=== PATIENT | female | born 1985 | race Caucasian/White ===

== ENCOUNTER 2024-11-08 18:55 | Emergency (ER) | payer MEDICAID ==
[~2024-11-08] VITALS: Ht 162.6 cm; Wt 126.0 kg
[~2024-11-08 18:55] MED LIST: ACYC-129 PO; BUSP5TAB3 PO; NORG1TAB90 PO
[2024-11-08 19:21] VITALS: TEMP 97.8
[2024-11-08] MEDS: ketorolac trometh 15mg/ml vial 15 MG/ML ML IM ONE (19:31)
--- NOTE | 2024-11-08 19:43 | Physician Documentation ---
History of Present Illness Chief Complaint: Abdominal Pain Stated Complaint: ABD AND BACK PAIN HPI 38-year-old female presents to the emergency department for evaluation of abdomi nal pain associated with right-sided flank pain. Patient reports that the right-sided flank pain is severe positive CVA tenderness when assessed. Patient denies any dysuria urine retention or frequency at this time. Patient reports that she may have had a fever but she did not take her temperature so she is unsure. No nausea vomiting diarrhea currently Medication Reconciliation Allergies: Coded Allergies: morphine (Verified Adverse Reaction, Intermediate, itching, 11/08/24) Scheduled Acyclovir* (Zovirax*), 0.5 TABLET PO BID, (Reported) Buspirone Hcl* (Buspar*), 1.5 TABLET PO BID, (Reported) Norgestimate-Ethinyl Estradiol (Ortho Tri-Cyclen), 1 TABLET PO DAILY, (Reported) Scheduled PRN Hydrocodone Bit/Acetaminophen (Hydrocodone-Apap 10-325 Tablet), 1 TAB PO TID PRN PRN for pain Physical Exam Vital Signs: Temperature: 97.8, Source: Temporal, Heart Rate: 108, Respiratory Rate: 16, BP: 182/102, Pulse Oximetry: 98, Weight: 126.000 Oxygen Flow Rate: 0 Physical Exam VITALS: Reviewed and as above. GENERAL: Alert, no apparent distress. HEENT: Normocephalic, atraumatic, PERRL, EOMI, dry mucosa, no erythema RESPIRATORY: Lungs clear, normal breath sounds, no respiratory distress. CHEST: No accessory muscle use, no retractions CV: Regular rate, rhythm, no edema, no murmur, No: JVD GI: Soft, non-tender, bowels sounds present, no rebound, guarding, or rigidity BACK: Positive CVA tenderness, or swelling MUSCULOSKELETAL No deformities, no edema SKIN: Warm and dry, no rash NEURO: Oriented x4, No motor or sensory deficit PSYCH: Normal mood and affect, no agitation Progress Results/Orders Results/Orders Medications Received in ER Medications (Trade) Dose Ordered Sig/[place] Route PRN Reason Start Time Stop Time Status Last Admin Dose Admin (Toradol injection) 15 mg ONCE ONCE IM 11/08/24 19:30 11/08/24 19:31 DC 11/08/24 19:31 15 MG Vital Signs 11/08/24 11/08/24 19:21 19:31 Temp 97.8 Pulse 108 Resp 16 16 B/P (MAP) 182/102 Pulse Ox 98 O2 Flow Rate 0 Medical Decision Making Findings CARE THE PATIENT WAS TRANSFERRED TO ID FROM OUR NURSE PRACTITIONER KAREN. Abdomen and pelvis CT scan without IV contrast, indication: Flank pain Impression: Descending and sigmoid diverticulosis. Fatty liver infiltration. 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 Cannot exclude bilateral ovarian cysts. Laboratory data interpretation: CBC, CMP and urinalysis are unremarkable. Emergency department course and medical decision-making: Patient presents with right flank pain. There was no evidence of a urinary tract infection, hematuria. There is no evidence on the CT scan for infection. No evidence of kidney stones or gallstones. No infection has been identified. Patient has an unremarkable abdominal exam. Patient's pain is actually worse with movement. I suspect this is musculoskeletal pain. Patient will be given a prescription for [place]. No medical or surgical emergency has been identified. Test results and all of the above reviewed and discussed with the patient. Patient is stable for discharge. Departure Time of Disposition: : Disposition: 01 HOME / SELF CARE / HOMELESS Impression: Primary Impression: Musculoskeletal back pain Condition: Stable Discharge Instructions: Musculoskeletal Pain Additional Instructions: I SUSPECT YOUR PAIN IS MUSCULOSKELETAL. TAKE MOTRIN/ADVIL 600 MG EVERY 8 HOURS WITH FOOD FOR PAIN. TAKE NORCO FOR SEVERE PAIN. NO DRIVING WHEN TAKING THE NORCO. FOLLOW UP WITH YOUR PRIMARY CARE DOCTOR IF YOUR SYMPTOMS DO NOT IMPROVE. Prescriptions Hydrocodone Bit/Acetaminophen (Hydrocodone-Apap 10-325 Tablet) 10mg/325mg Tablet 1 TAB PO TID PRN PRN for pain, #20 TAB Prov: TONIA EISENBERG MD 11/09/24 Education Educated: Patient Educated regarding: diagnosis, treatment, need for follow up Signature Scribe Signature: No Scribe Attestation: No scribe JACKLYN BETANCOURT Nov 08, 2024 19:43 TONIA EISENBERG MD Nov 09, 2024 01:29
[2024-11-08 20:02] LABS: MEAN PLATELET VOLUME 8.6 FL (7.4-10.4); RED CELL DISTRIBUTION WIDTH 15.2 % (11.5-14.5)
[2024-11-08] MEDS: normal saline 1000ml 1,000 ML IV ONE (20:04)
[2024-11-08 20:11] LABS: CREATININE 0.89 MG/DL (0.40-0.90); TOTAL CARBON DIOXIDE 27.7 MMOL/L (24-32); eCRCL 73 ML/MIN; eGFR 70 ML/MIN
[2024-11-08] MEDS: HYDROcodone/acetaminophen 5mg/325mg tablet PO ONE (20:34)
[2024-11-08] MEDS ORDERED: iohexol 300mg/ml 100ml inj. ONE (20:38)
[2024-11-08 21:24] LABS: LEUKOCYTE ESTERASE ,URINE NEGATIVE (Neg); NITRITES, URINE NEGATIVE (Neg); OCCULT BLOOD,URINE SMALL (Neg); URINE HCG NEGATIVE (NEG)
[2024-11-08 21:32] LABS: UA COLLECTION TYPE CLN CATCH MIDSTREAM
[2024-11-08 21:35] LABS: SQUAMOUS EPITHELIAL CELL,UR FEW /LPF (FEW)
--- NOTE | 2024-11-09 00:34 | RADIOLOGY REPORT ---
Clinical History LBP Comparison None Technique: All CT scans at this medical facility are performed using dose modulation techniques as appropriate t o a performed exam including the following: Automated exposure control was utilized; adjustment of th e mA and/or kV according to patient size; and use of iterative reconstruction technique. All CT studies are reported to the Dose Index Registry of the [employer]. Contrast: omni 300 100ml Radiation Dose: CTDI (mGy): 36.49; DLP (mGy-cm): 2006.25 ELISABETSTEFFANIEKEYONNAElder JOHN, [id number] FINDINGS: LUNG BASES: Unremarkable LIVER: Hypodense liver parenchyma. Liver is 20.6 cm in length. GALLBLADDER: Contracted gallbladder PANCREAS: Unremarkable SPLEEN: Unremarkable ADRENAL GLANDS: Unremarkable KIDNEYS: Unremarkable AORTA: Unremarkable INFERIOR VENA CAVA: Unremarkable LYMPH NODES: Unremarkable STOMACH: Unremarkable SMALL INTESTINE: Unremarkable APPENDIX: Normal caliber. COLON: Interposition of colon anterior to the liver. There is diverticulosis of descending and sigmo id colon. BLADDER: Unremarkable RECTUM: Unremarkable SKELETAL: Unremarkable SUPERFICIAL SOFT TISSUES: Unremarkable OTHER: Bilateral pelvic hypodense lesions which may represent ovarian cysts. IMPRESSION: Descending and sigmoid diverticulosis. Fatty liver infiltration. 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 Cannot exclude bilateral ovarian cysts. This report was electronically signed by João Salazar MD on 11/09/2024 12:32:07 AM.
[2024-11-09] MEDS ORDERED: HYDR-3973 PO (01:28)
[2024-11-09 01:38] VITALS: BP 146/67; PULSE 76; RESP 16; O2SAT 98
== END 2024-11-09 01:41 | disposition home or self-care (01) ==
LOC: ER 18:55
DX: M54.9 Dorsalgia, unspecified (principal); Z88.5 Allergy status to narcotic agent; Z79.899 Other long term (current) drug therapy
CPT/HCPCS: 36415; 74176; 80053; 81001; 81025; 83690; 84702; 85025; 96360; 96361; 96372; 99285; J1885; J7030; Q9967

== ENCOUNTER 2025-04-20 13:36 | Emergency (ER) | payer MEDICAID, OTHER ==
[~2025-04-20] VITALS: Ht 162.6 cm; Wt 115.7 kg
[2025-04-20 13:49] VITALS: BP 165/81; PULSE 98; RESP 18; TEMP 98.5; O2SAT 96
--- NOTE | 2025-04-20 13:58 | Physician Documentation ---
History of Present Illness ~ Chief Complaint: Cold, cough & congestion Stated Complaint: ASTHMA Time Seen by MD: 13:52 Source: patient Mode of Arrival: POV Exam Limitations: no limitations HPI 39-year-old female with history of asthma with upper respiratory infection use telehealth was able to crop picker her prescription for prednisone but was unable to get her inhaler. Cold cough congestion x1 week Medication Reconciliation Allergies: Coded Allergies: morphine (Verified Adverse Reaction, Intermediate, itching, 04/20/25) Scheduled Acyclovir* (Zovirax*), 0.5 TABLET PO BID, (Reported) Buspirone Hcl* (Buspar*), 1.5 TABLET PO BID, (Reported) Norgestimate-Ethinyl Estradiol (Ortho Tri-Cyclen), 1 TABLET PO DAILY, (Reported) Past Medical History Past Medical History: Asthma Past Surgical History: noncontributory Lives with: Family Lives In: Home Occupation: employed Review of Systems Respiratory: Reports: see HPI Physical Exam Vital Signs: RN Vital Signs have been reviewed: Yes, Temperature: 98.5, Source: Temporal, Heart Rate: 98, Respiratory Rate: 18, BP: 165/81, Pulse Oximetry: 96, Weight: 115.700 Oxygen Flow Rate: 0 Physical Exam General: Alert, no apparent distress. HEENT: PERRL, EOMI, no injection, moist mucous membranes. Neck: Full range of motion. Respiratory: Lungs clear, no respiratory distress. Mild inspiratory wheezing posteriorly bronchospasm with cough Chest: No accessory muscle use. Cardiovascular: Regular rate and rhythm, no murmurs. Extremities: Normal range of motion, no deformity. Neurologic: Oriented x4. Psychiatric: Normal mood and affect. Skin: Normal color, warm and dry. No edema, no ecchymosis. Progress Results/Orders Results/Orders Vital Signs 04/20/25 13:49 Temp 98.5 Pulse 98 Resp 18 B/P (MAP) 165/81 Pulse Ox 96 O2 Flow Rate 0 Medical Decision Making Additional information obtaine: old records Findings Patient was unable to crop picker her other medications started prednisone last night after a TeleMed doctor. She does have some tightness no rhonchi or rales. Due to patient's long history an antibiotic and an inhaler we will be prescribe d patient's vital signs are reassuring. Walking talking in full sentences. Differential Dx:Considerations: Include: Allergic rhinitis, Influenza, Sinusitis, URI, Other Departure Time of Disposition: 14:02 Impression: Primary Impression: Acute respiratory infection Condition: Stable Discharge Instructions: Upper Respiratory Infection, Adult Additional Instructions: Antibiotics as prescribed monitor for any new or worsening symptoms feel free to return to the ER. Referrals: NO PRIMARY CARE PROVIDER (PCP) Prescriptions Azithromycin (Zithromax) 250 Mg Tablet 1 TAB PO UD for 5 Days, #6 TAB 2 the first day followed by 1 for days 2-5 Prov: NAYE WOOD NP 04/20/25 albuterol inhaler (Pro-Air Inhaler) 8.5 Gm Inhaler 2 PUFFS INH Q4HPRN PRN for wheezing for 30 Days, #18 GM Prov: NAYE WOOD NP 04/20/25 Education Educated: Patient Educated regarding: diagnosis, treatment, need for follow up Signature Scribe Signature: No scribe Attestation: The note accurately reflects work and decisions made by me.Naye POLANCO 04/20/25 14:05 NAYE WOOD NP Apr 20, 2025 13:58
[2025-04-20] MEDS ORDERED: AZIT250T89 PO (14:04)
[2025-04-20] MEDS ORDERED: ALBU8HFA INH (14:04)
== END 2025-04-20 15:55 | disposition home or self-care (01) ==
LOC: ER 13:36
DX: J22 Unspecified acute lower respiratory infection (principal); Z88.5 Allergy status to narcotic agent; Z79.899 Other long term (current) drug therapy
CPT/HCPCS: 99283